=== PATIENT | female | born 1990 | race Two or more races ===

== ENCOUNTER 2021-09-29 13:41 | Emergency (ER) | payer MEDICAID ==
[~2021-09-29] VITALS: Ht 157.5 cm; Wt 98.0 kg
--- NOTE | 2021-09-29 14:02 | NUR ---
TO ER BED 11, BIB C/O LOWER BACK PAIN X 5 DAYS. "I HIT MY BACK IN THE SINK", COULDN'T GET UP THIS MORNING, P/S DESCRIBED 02/22, DENIES ANY OTHER MEDICAL HX, NO POSSIBILITY OF PREGANCY (CURRENTLY ON PERIOD), [id number]
[2021-09-29] MEDS ORDERED: KETOROLAC TROMETHAMINE INJ 60 MG/2 ML VIAL IM ONE ×2 (15:00→15:02)
--- NOTE | 2021-09-29 15:00 | NUR ---
PATIENT SIGNED WAIVER. LMP 09/27/21.
--- NOTE | 2021-09-29 15:04 | NUR ---
Alison gordon in ED - 09/29/21 at 1506 by CATHERINE PATIENT NPO PER DR LUCAS, HOME MEDS ON HOLD FOR NOW, PERMISSIVE HYPERTENSION FOR 24HRS
[2021-09-29] MEDS ORDERED: IBUP-1957 PO (16:01)
[2021-09-29] MEDS ORDERED: HYDR-3972 PO (16:01)
--- NOTE | 2021-09-29 16:08 | NUR ---
Patient discharged to home in stable condition. Written and verbal after care instructions given. Patient verbalizes understanding of instruction.
[2021-09-29 16:09] VITALS: BP 138/84
== END 2021-09-29 16:09 | disposition home or self-care (01) ==
LOC: ER 13:45
DX: S30.0XXA Contusion of lower back and pelvis, initial encounter (principal); W22.8XXA Striking against or struck by other objects, initial encounter; Y93.89 Activity, other specified; Y92.89 Other specified places as the place of occurrence of the external cause; Y99.8 Other external cause status
CPT/HCPCS: 72131; 96372; 99284; J1885